=== PATIENT | male | born 1990 | race Two or more races ===

== ENCOUNTER 2016-08-29 09:51 | Emergency (ER) | payer SELFPAY ==
[2016-08-29 10:00] VITALS: BP 117/57; PULSE 80; TEMP 99.4; BMI 22.6
[2016-08-29] MEDS ORDERED: RABIES VACCINE (PCEC)/PF 2.5 UNIT/VIAL IM ONE (10:15)
--- NOTE | 2016-08-29 10:26 | PDOC ---
History of Present Illness - General Chief Complaint: Revisit,Rabies Injection Stated Complaint: FOLLOW UP/ RABIES SHOT Time Seen by Provider: 08/29/16 10:12 History Source: Patient Exam Limitations: No Limitations - History of Present Illness Initial Comments: 08/29/16 10:17 here for second Rabies Vacciine . Was attacked by unknown dog, thinks was pimple 3 days ago. Was bitten in the right lower leg both anterior and posterior wound sites. Patient denies fever, states is quite painful still, has used Percocet for pain relief and taking Augmentin as directed. Denies purulent drainage, swelling, Severity: moderate Associated Symptoms: reports: denies symptoms Past History - Travel Traveled outside of the country in the last 30 days: No Close contact w/someone who was outside of country & ill: No - Past Medical History Allergies/Adverse Reactions: Allergies Allergy/AdvReac Type Severity Reaction Status Date / Time divalproex sodium AdvReac Nausea Verified 08/29/16 10:00 [From [facility]] Home Medications: Ambulatory Orders No Home Medications 0 dose .ROUTE UTDICT 05/06/13 Amoxicillin/Potassium Clav [Augmentin 875-125 Tablet] 1 each PO BID #14 tablet 08/26/16 Oxycodone HCl/Acetaminophen [Percocet 5/325 -] 1 tab PO Q4H #20 tablet MDD 6 11/05 - Surgical History Abdominal Surgery: Yes (ABD CYST REMOVED) - Psycho/Social/Smoking Cessation Hx Anxiety: No Suicidal Ideation: No Smoking History: Never smoked Number of Cigarettes Smoked Daily: 2 'Breaking Loose' booklet given: 05/06/13 Hx Alcohol Use: No Drug/Substance Use Hx: No Substance Use Type: None Review of Systems - Review of Systems Able to Perform ROS?: Yes Is the patient limited Gabonese proficient: Yes Constitutional: Yes: Symptoms Reported, See HPI. No: Fever HEENTM: No: Symptoms Reported Respiratory: No: Symptoms reported Musculoskeletal: Yes: Symptoms Reported, See HPI, Joint Swelling, Muscle Pain Psychiatric: No: Anxiety All Other Systems: Reviewed and Negative *Physical Exam - Vital Signs Last Vital Signs Temp Pulse Resp BP Pulse Ox 99.4 F 80 20 117/57 96 08/29/16 09:57 08/29/16 09:57 08/29/16 09:57 08/29/16 09:57 08/29/16 09:57 - Physical Exam General Appearance: Yes: Appropriately Dressed HEENT: positive: JUMA, Normal ENT Inspection, Normal Voice, TMs Normal, Pharynx Normal Neck: positive: Supple. negative: Lymphadenopathy (R), Lymphadenopathy (L) Extremity: positive: Normal Capillary Refill, Normal Inspection, Normal Range of Motion, Tender Integumentary: positive: Dry, Bruising, Other (sutures intact to multiple sites to right lower extremity illness, swelling, streaking or purulent drainage noted. Bruising extends into foot. And at Achilles intact.). 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, Fully Oriented, Alert, Normal Mood/ Affect, Normal Response, Motor Strength 08/24 Medical Decision Making - Medical Decision Making 08/29/16 10:31 Rabies vaccination provided, understands to return on the for third vaccine *DC/Admit/Observation/Transfer Diagnosis at time of Disposition: Encounter for repeat administration of rabies vaccination - Discharge Dispostion Disposition: HOME Condition at time of disposition: Stable Admit: No - Patient Instructions Printed Discharge Instructions: DI for Rabies Vaccine Additional Instructions: return 09/02 for 3rd vaccine - Post Discharge Activity Work/School Note: Back to Work
== END 2016-08-29 10:35 | disposition home or self-care (01) ==
LOC: JERFT 09:51
PROC: 3E0234Z Introduction of Serum, Toxoid and Vaccine into Muscle, Percutaneous Approach (ICD-10-PCS; principal; 2016-08-29)
DX: Z20.3 Contact with and (suspected) exposure to rabies (principal)
CPT/HCPCS: 90675; 99281-25

== ENCOUNTER 2016-09-02 10:17 | Emergency (ER) | payer SELFPAY ==
[2016-09-02 10:35] VITALS: BP 133/74; PULSE 60; TEMP 98.6; BMI 22.9
--- NOTE | 2016-09-02 10:40 | PDOC ---
History of Present Illness - General Chief Complaint: Revisit,Rabies Injection Stated Complaint: FOLLOW UP VISIT Time Seen by Provider: 09/02/16 10:32 History Source: Patient Exam Limitations: No Limitations - History of Present Illness Initial Comments: 25 y/o afebrile male here for third Rabies Vacciine . Was attacked by unknown dog, thinks was pimple 3 days ago. Was bitten in the right lower leg both anterior and posterior wound sites. Patient denies fever, states is quite painful still, has used Percocet for pain relief and taking Augmentin as directed. Denies purulent drainage, swelling, Past History - Past Medical History Allergies/Adverse Reactions: Allergies Allergy/AdvReac Type Severity Reaction Status Date / Time divalproex sodium AdvReac Nausea Verified 09/02/16 10:30 [From Depakote] Home Medications: Ambulatory Orders NK [No Known Home Medication] 08/29/16 Thyroid Disease: No - Surgical History Abdominal Surgery: Yes (ABD CYST REMOVED) - Psycho/Social/Smoking Cessation Hx Anxiety: Yes Suicidal Ideation: No Smoking History: Never smoked Have you smoked in the past 12 months: No Number of Cigarettes Smoked Daily: 2 Information on smoking cessation initiated: No 'Breaking Loose' booklet given: 05/06/13 Hx Alcohol Use: No Drug/Substance Use Hx: No Substance Use Type: None *Physical Exam - Vital Signs Last Vital Signs Temp Pulse Resp BP Pulse Ox 98.6 F 60 18 133/74 100 09/02/16 10:28 09/02/16 10:28 09/02/16 10:28 09/02/16 10:28 09/02/16 10:28 Medical Decision Making - Medical Decision Making A/P: 25 y/o afebrile male here for 3rd rabies shot after being bitten by unknown dog on 08/26/16. Will give Rabies Vaccine IM and discharge to home. The patient is aware that he has to return to the ER on 09/09/16 for final rabies vaccine. *DC/Admit/Observation/Transfer Diagnosis at time of Disposition: Encounter for repeat administration of rabies vaccination - Discharge Dispostion Disposition: HOME Condition at time of disposition: Good - Patient Instructions Printed Discharge Instructions: DI for Rabies Vaccine Additional Instructions: Discharge Instructions: -Please return to the ER on 09/09/16 for your 4th rabies shot.
[2016-09-02] MEDS ORDERED: RABIES VACCINE (PCEC)/PF 2.5 UNIT/VIAL IM ONE (10:48)
== END 2016-09-02 10:58 | disposition home or self-care (01) ==
LOC: JERFT 10:17
PROC: 3E0234Z Introduction of Serum, Toxoid and Vaccine into Muscle, Percutaneous Approach (ICD-10-PCS; principal; 2016-09-02)
DX: Z20.3 Contact with and (suspected) exposure to rabies (principal)
CPT/HCPCS: 90675; 99281-25

== ENCOUNTER 2016-09-04 16:00 | Emergency (ER) | payer SELFPAY ==
[2016-09-04 16:12] VITALS: BP 125/76; PULSE 72; TEMP 98.4; BMI 22.6
[2016-09-04] MEDS ORDERED: BACITRACIN 15 GM TUBE TOPICAL OINTMENT ONE (17:14)
--- NOTE | 2016-09-04 17:34 | PDOC ---
Suture Removal/Wound Check HPI - History of Present Illness Chief Complaint: Suture/Staple Removal(Here) Stated Complaint: SUTURE REMOVAL Time Seen by Provider: 09/04/16 16:34 History Source: Yes: Patient Exam Limitations: Yes: No Limitations Treated at: [facility] ED Date of Last ED visit: 08/25/16 - Previous ED Treatment Type of procedure performed on last visit: Yes: Laceration Repair Tetanus Immunization: Yes: Given at last ED visit Antibiotics Prescribed: Yes (augmentin, completed ) - Onset of Previous Treatment Date of Occurence: 08/25/16 Past History - Travel Traveled outside of the country in the last 30 days: No Close contact w/someone who was outside of country & ill: No - Past Medical History Allergies/Adverse Reactions: Allergies divalproex sodium [From Depakote] Adverse Reaction (Verified 09/04/16 16:12) Nausea Home Medications: Ambulatory Orders NK [No Known Home Medication] 08/29/16 - Social History Smoking Status: Never smoked Number of Ciarettes Per Day: 2 Suture Removal/Wound Check PE - Physical Exam Laceration/Wound Check Symptoms: reports: None. denies: Chills, Numbness, Weakness Current Severity Level: Mild Maximum Severity Level: Mild Location of Laceration/Wound: right: Ankle Pain Radiation: None *Review of Systems - Review of Systems Able to Perform ROS?: Yes Constitutional: No: Chills, Fever HEENTM: No: Nose Pain, Nose Congestion, Throat Pain Respiratory: No: Cough, Orthopnea, Stridor Cardiac (ROS): No: Chest Pain, Irregular Heart Rate ABD/GI: No: Constipated, Other : No: Pain Integumentary: Yes: Other (suture removal from right ankle) Neurological: No: Headache, Numbness, Paresthesia Psychiatric: No: Frequent Crying, Change in Appetite Endocrine: No: Intolerance to Heat Medical Decision Making - Medical Decision Making 09/04/16 17:29 25 year old with dog bite 10 days ago presents for suture removal sutures removed intact encouraged to keep wound clean and dry return 09/09/16 for rabies vaccine *DC/Admit/Observation/Transfer Diagnosis at time of Disposition: Visit for suture removal - Discharge Dispostion Disposition: HOME Condition at time of disposition: Good Admit: No - Patient Instructions Printed Discharge Instructions: DI for Suture Removal Additional Instructions: Keep wound clean and dry. Please return 09/09/16 for vaccine vaccine - Post Discharge Activity Work/School Note: Back to Work
== END 2016-09-04 17:39 | disposition home or self-care (01) ==
LOC: JERFT 16:00
DX: Z48.02 Encounter for removal of sutures (principal)
CPT/HCPCS: 99281-25

== ENCOUNTER 2016-09-09 08:37 | Emergency (ER) | payer SELFPAY ==
[2016-09-09 08:41] VITALS: BP 122/63; PULSE 81; TEMP 98.8; BMI 22.6
--- NOTE | 2016-09-09 09:30 | PDOC ---
History of Present Illness - General Chief Complaint: Revisit,Rabies Injection Stated Complaint: REVISIT/ RABIE SHOT Time Seen by Provider: 09/09/16 09:14 History Source: Patient Exam Limitations: No Limitations - History of Present Illness Initial Comments: 09/09/16 10:10 Chief complaint: Rabies shot Patient is a healthy 25-year-old male who was bitten by a pit bull about 2 weeks ago, had suturing done, took Augmentin, is here to have the rest of the sutures out and to get a rabies shot. He states that the wound is still a little red. He had some numbness to the foot but that is resolved. Otherwise feels well. Patient finished a course of Augmentin. GENERAL/CONSTITUTIONAL: No fever, weakness. dizziness HEAD, EYES, EARS, NOSE AND THROAT: No change in vision. No ear pain or discharge. No sore throat. CARDIOVASCULAR: No chest pain RESPIRATORY: No shortness of breath or cough GASTROINTESTINAL: No pain, nausea, vomiting, diarrhea or constipation GENITOURINARY: No dysuria MUSCULOSKELETAL: No neck or back pain SKIN: No rash, + sutures, redness NEUROLOGIC: No headache, vertigo, loss of consciousness, or loss of sensation. GENERAL: The patient is awake, alert, and fully oriented, in no acute distress. HEAD: Normal with no signs of trauma. EYES: Pupils equal, round and reactive to light, sclera anicteric, conjunctiva clear. ENT: pharynx: no erythema, no exudate, uvula midline NECK: supple CHEST: clear, nontender, rr ABD: soft, nontender EXTREMITIES: Right lower leg with 2 wounds, wound to the lateral aspect scabbing , no signs of infection, wound to the medial aspect with [address], large scabbing area, and minimal redness around the area, no indication or findings of abscess, no streaking and minimal tenderness. rest of extremities, Normal range of motion, no edema. NEUROLOGICAL: Normal speech, normal gait. SKIN: Warm, Dry 09/09/16 10:15 Past History - Past Medical History Allergies/Adverse Reactions: Allergies Allergy/AdvReac Type Severity Reaction Status Date / Time divalproex sodium AdvReac Nausea Verified 09/09/16 08:41 [From Depakote] Home Medications: Ambulatory Orders Amox-Tr/K Cl [Augmentin - 875Mg Tablet] 1 tab PO BID #14 tablet 09/09/16 Sulfamethoxazole/Trimethoprim [Bactrim Ds -] 1 tab PO DAILY #30 tablet 09/09/16 Thyroid Disease: No - Surgical History Abdominal Surgery: Yes (ABD CYST REMOVED) - Psycho/Social/Smoking Cessation Hx Anxiety: Yes Suicidal Ideation: No Smoking History: Current every day smoker Have you smoked in the past 12 months: No Number of Cigarettes Smoked Daily: 2 Information on smoking cessation initiated: No 'Breaking Loose' booklet given: 05/06/13 Hx Alcohol Use: Yes (SOCIAL) Drug/Substance Use Hx: No Substance Use Type: None *Physical Exam - Vital Signs Last Vital Signs Temp Pulse Resp BP Pulse Ox 98.8 F 81 20 122/63 98 09/09/16 08:38 09/09/16 08:38 09/09/16 08:38 09/09/16 08:38 09/09/16 08:38 Procedures - Additional Procedures Progress: 09/09/16 10:28 suture removed without any issues Medical Decision Making - Medical Decision Making 09/09/16 10:16 Patient who came for last rabies shot from a dog bite, who has [address] stated there was some redness around the area. Patient got last rabies shot, the sutures were removed, there is no signs of abscess or gross cellulitis that spreading. Patient had taken Augmentin. He states it hasn't gotten worse but did not go away. We'll give patient another course of Augmentin , will add Bactrim for better coverage and patient was given instructions for return Discussed issues, findings, results, applicable medications and treatments and follow-up. All these were understood and all questions were answered *DC/Admit/Observation/Transfer Diagnosis at time of Disposition: Encounter for repeat administration of rabies vaccination - Discharge Dispostion Admit: No - Prescriptions Prescriptions: Amox-Tr/K Cl [Augmentin - 875Mg Tablet] 1 tab PO BID #14 tablet Sulfamethoxazole/Trimethoprim [Bactrim Ds -] 1 tab PO DAILY #30 tablet - Patient Instructions Printed Discharge Instructions: DI for Rabies Vaccine Additional Instructions: Clean with soap and water 2-3 times daily, apply bacitracin Have her reevaluated if redness, pus, fever or getting worse Followup with your doctor Take the Augmentin and the Bactrim twice a day both for 7 days. If this gets worse return to the hospital, as she will probably need to be admitted IV antibiotics
== END 2016-09-09 09:45 | disposition home or self-care (01) ==
LOC: JERFT 08:37
PROC: 3E0234Z Introduction of Serum, Toxoid and Vaccine into Muscle, Percutaneous Approach (ICD-10-PCS; principal; 2016-09-09)
DX: Z20.3 Contact with and (suspected) exposure to rabies (principal)
CPT/HCPCS: 99281-25

== ENCOUNTER 2016-09-25 16:28 | Emergency (ER) | payer SELFPAY ==
--- NOTE | 2016-09-25 16:43 | PDOC ---
Rapid Medical Evaluation Time Seen by Provider: 09/25/16 16:40 Medical Evaluation: Allergies Allergy/AdvReac Type Severity Reaction Status Date / Time divalproex sodium AdvReac Nausea Verified 09/09/16 08:41 [From [facility]] I have performed a brief in-person evaluation of this patient. The patient presents with a chief complaint of: dog bite to right posterior leg 5/6. had stitches and were removed. Was placed on abx (bactrim and augmentin) which he finished. worsened pain, redness and opening to affected area. Pertinent physical exam findings: poorly healing wound of right posterior distal leg with no streaking. I have ordered the following: none The patient will proceed to the ED for further evaluation.
[2016-09-25 16:44] VITALS: BP 125/85; PULSE 65; TEMP 99.1; BMI 21.5
--- NOTE | 2016-09-25 17:46 | PDOC ---
History of Present Illness - General History Source: Patient Exam Limitations: No Limitations - History of Present Illness Initial Comments: 09/25/16 17:47 The patient is a 25 year old male, with no significant past medical history , who presents today with an infected dog bite wound from 08/25/16 on the posterior right leg. The patient was sutured, given a rabies shot, and discharged on Augmentin. On 09/09/16, the patient had the sutures removed. The patient states that the wound began to open up as soon as the sutures were taken out. Since then, the wound started to swell and opened up significantly 2 days ago. He is also concerned that his achilles feels numb since the accident. The patient notes that he wears tall heavy work boots, but wraps the wound with antibacterial pads and gauze. Denies fever, chills, nausea, vomiting. Allergies: divalproex sodium <Rosangela Novoa - Last Filed: 09/25/16 17:47> - General History Source: Patient Exam Limitations: No Limitations <Lesa Rutherford - Last Filed: 09/27/16 11:27> - General Chief Complaint: Wound Infection Stated Complaint: INFECTION Time Seen by Provider: 09/25/16 16:40 Past History <Rosangela Novoa - Last Filed: 09/25/16 17:47> - Past Medical History Thyroid Disease: No - Surgical History Abdominal Surgery: Yes (ABD CYST REMOVED) - Psycho/Social/Smoking Cessation Hx Anxiety: Yes Suicidal Ideation: No Smoking History: Never smoked Have you smoked in the past 12 months: No Number of Cigarettes Smoked Daily: 2 Information on smoking cessation initiated: No 'Breaking Loose' booklet given: 05/06/13 Hx Alcohol Use: Yes (SOCIAL) Drug/Substance Use Hx: No Substance Use Type: None <Lesa Rutherford - Last Filed: 09/27/16 11:27> - Past Medical History Allergies/Adverse Reactions: Allergies Allergy/AdvReac Type Severity Reaction Status Date / Time divalproex sodium AdvReac Nausea Verified 09/25/16 16:44 [From Depakote] Home Medications: Ambulatory Orders Sulfamethoxazole/Trimethoprim [Bactrim Ds -] 1 tab PO DAILY #30 tablet 09/09/16 Doxycycline Hyclate [Vibramycin -] 100 mg PO BID #14 cap 09/25/16 Ibuprofen [Motrin] 600 mg PO TID #30 tablet 09/25/16 Oxycodone HCl/Acetaminophen [Percocet 5-325 mg Tablet] 1 - 2 tab PO Q6H #20 tablet MDD 4 09/25/16 Review of Systems - Review of Systems Able to Perform ROS?: Yes Comments:: 09/25/16 17:47 GENERAL/CONSTITUTIONAL: No: fever, chills, weakness, loss of appetite. HEAD, EYES, EARS, NOSE AND THROAT: No: change in vision, ear pain, discharge, sore throat, throat swelling. CARDIOVASCULAR: No: chest pain, lightheadedness, palpitations, syncope RESPIRATORY: No: cough, shortness of breath, wheezing, hemoptysis, stridor. GASTROINTESTINAL: No: nausea, vomiting, abdominal cramping, diarrhea, rectal bleeding, constipation. GENITOURINARY: No: dysuria, hematuria, frequency, urgency, flank pain. MUSCULOSKELETAL: No: back pain, neck pain, joint pain, muscle swelling or pain SKIN: Yes: + wound on the posterior right leg. No: lesions, pallor, rash or easy bruising. NEUROLOGIC: No: headache, vertigo, paresthesias, weakness ENDOCRINE: No: unexplained weight gain or loss HEMATOLOGIC/LYMPHATIC: No: anemia, easy bleeding, swelling nodes <Rosangela Novoa - Last Filed: 09/25/16 17:47> *Physical Exam - Vital Signs Last Vital Signs Temp Pulse Resp BP Pulse Ox 99.1 F 65 18 125/85 98 09/25/16 16:40 09/25/16 16:40 09/25/16 16:40 09/25/16 16:40 09/25/16 16:40 - Physical Exam Comments: 09/25/16 17:47 GENERAL: The patient is in no acute distress. HEAD: Normal with no signs of trauma. EYES: PERRLA, EOMI, sclera anicteric, conjunctiva clear. ENT: Ears normal, nares patent, oropharynx clear without exudates. Moist mucous membranes. NECK: Normal range of motion, supple without lymphadenopathy, JVD, or masses. LUNGS: Breath sounds equal, clear to auscultation bilaterally. No wheezes, and no crackles. HEART:Regular rate and rhythm, normal S1 and S2 without murmur, rub or gallop. ABDOMEN: Soft, nontender, normoactive bowel sounds. No guarding, no rebound. EXTREMITIES: Normal range of motion, no edema. No clubbing or cyanosis. No erythema, or tenderness. NEUROLOGICAL: Cranial nerves II through XII grossly intact. Normal speech. No focal neurological deficits. MUSCULOSKELETAL: Back nontender to palpation, no CVA tenderness SKIN: +Wound dehisced. Surrounding erythema and swelling. No tenderness to palpation. No calf swelling. <Rosangela Novoa - Last Filed: 09/25/16 17:47> - Vital Signs Last Vital Signs Temp Pulse Resp BP Pulse Ox 99.1 F 65 18 125/85 98 09/25/16 16:40 09/25/16 16:40 09/25/16 16:40 09/25/16 16:40 09/25/16 16:40 <Lesa Rutherford - Last Filed: 09/27/16 11:27> ED Treatment Course - LABORATORY CBC & Chemistry Diagram: 09/25/16 17:33 09/25/16 17:33 - RADIOLOGY Radiology Studies Ordered: Category Date Time Status LOWER EXTREMITY CT W/WO CONTR [CT] Stat CT Scan 09/25/16 17:17 Ordered <Lesa Rutherford - Last Filed: 09/27/16 11:27> Medical Decision Making - Medical Decision Making 09/25/16 17:46 A portion of this note was documented by scribe services under my direction. I have reviewed the details of the note, within reason, and agree with the documentation with the following case summary and management plan written by me. Nursing documentation reviewed and incorporated into medical decision making This is a 25-year-old otherwise healthy male who presents emergency department due to changes of his wound. Briefly, he was seen in the ER s/p dog bite with large defect Wound re approximated Pt started on antibiotics Pt was also started on Rabies ppx Sutures were removed Three left in because there appeared to be mild wound dehiscence Ultimately the remainining sutures were removed Pt noted two days ago that his wound opened up more This actually made him feel better to have the wound open up He felt that it relieved pressure After the wound opened up more, his heel which was previously numb, felt much better He still has numbness of the achilles No fevers or chills No drainage Wound location is swollen surrounging hyperpigmentation 09/25/16 18:45 Laboratory Tests 09/25/16 09/25/16 17:33 17:33 WBC 8.2 Hgb 13.3 Hct 40.2 Plt Count 217 Sodium 140 Potassium 4.2 Chloride 105 Carbon Dioxide 25 Anion Gap 10 BUN 13 Creatinine 0.9 Random Glucose [address] to evaluate for deep space infection Will sign out to Dr Valentin If abscess --> admit If no abscess -- > ? plastic surgery follow up?? <Lesa Rutherford - Last Filed: 09/27/16 11:27> *DC/Admit/Observation/Transfer - Attestations Scribe Attestion: 09/25/16 17:48 Documentation prepared by [employer], acting as anesthesiology medical doctor for Lesa Rutherford MD. <Rosangela Novoa - Last Filed: 09/25/16 17:47> <Lesa Rutherford - Last Filed: 09/27/16 11:27> Diagnosis at time of Disposition: Wound healing, delayed - Discharge Dispostion Disposition: HOME - Prescriptions Prescriptions: Ibuprofen [Motrin] 600 mg PO TID #30 tablet Oxycodone HCl/Acetaminophen [Percocet 5-325 mg Tablet] 1 - 2 tab PO Q6H #20 tablet MDD 4 Doxycycline Hyclate [Vibramycin -] 100 mg PO BID #14 cap - Patient Instructions Printed Discharge Instructions: DI for Wound Infection Additional Instructions: Continue keeping wound clean and dry. WASh with soap and water. Return if any problems. - Post Discharge Activity Work/School Note: Back to Work
[2016-09-25 17:55] LABS: BASOPHIL 0.5 % (0-2.0); EOSINOPHIL 0.7 % (0-4.5); MCH 29.3 pg (25.7-33.7); MEAN CELL VOLUME 88.9 fl (80-96); NEUTROPHILS 62.1 % (42.8-82.8); PLATELET COUNT 217 K/MM3 (134-434); RDW 13.8 % (11.9-15.9); WHITE BLOOD COUNT 8.2 K/mm3 (4.0-10.0)
[2016-09-25 18:14] LABS: ALBUMIN 4.2 g/dl (3.4-5.0); ALK PHOS 78 U/L (45-117); ANION GAP 10 (8-16); BILIRUBIN,TOTAL 0.4 mg/dL (0.2-1.0); CO2 25 mmol/L (21-32); COCKROFT - GAULT 120.74; CREATININE 0.9 mg/dL (0.7-1.3); GLUCOSE,RANDOM 87 mg/dL (74-106); SGOT/AST 15 U/L (15-37); SGPT/ALT 22 U/L (12-78); TOT PROT 7.3 g/dl (6.4-8.2)
[2016-09-25] MEDS ORDERED: DOXYCYCLINE HYCLATE 100 MG CAPSULE PO ONE ×2 (21:24→21:41)
[2016-09-25] MEDS ORDERED: OXYCODONE/APAP 5/325MG COMBO TABLET PO ONE (21:26)
--- NOTE | 2016-09-25 21:28 | PDOC ---
*Physical Exam - Vital Signs Last Vital Signs Temp Pulse Resp BP Pulse Ox 99.1 F 65 18 125/85 98 09/25/16 16:40 09/25/16 16:40 09/25/16 16:40 09/25/16 16:40 09/25/16 16:40 ED Treatment Course - LABORATORY CBC & Chemistry Diagram: 09/25/16 17:33 09/25/16 17:33 - ADDITIONAL ORDERS Additional order review: Laboratory Results 09/25/16 17:33 Sodium 140 Potassium 4.2 Chloride 105 Carbon Dioxide 25 Anion Gap 10 BUN 13 Creatinine 0.9 Creat Clearance w eGFR > 60 Random Glucose 87 Calcium 9.0 Total Bilirubin 0.4 AST 15 ALT 22 Alkaline Phosphatase 78 Total Protein 7.3 Albumin 4.2 09/25/16 17:33 RBC 4.53 MCV 88.9 MCHC 33.0 RDW 13.8 MPV 9.0 Neutrophils % 62.1 Lymphocytes % 27.4 Monocytes % 9.3 Eosinophils % 0.7 Basophils % 0.5 *DC/Admit/Observation/Transfer Diagnosis at time of Disposition: Delayed wound healing - Discharge Dispostion Disposition: HOME Condition at time of disposition: Stable Admit: No - Patient Instructions Printed Discharge Instructions: DI for Wound Infection Additional Instructions: Continue keeping wound clean and dry. WASh with soap and water. Return if any problems. - Post Discharge Activity Work/School Note: Back to Work
[2016-09-25] MEDS ORDERED: OXYCODONE/APAP 5/325MG COMBO TABLET ONE (21:40)
== END 2016-09-25 21:46 | disposition home or self-care (01) ==
LOC: JER 16:28
DX: T81.33XA Disruption of traumatic injury wound repair, initial encounter (principal); Y83.8 Other surgical procedures as the cause of abnormal reaction of the patient, or of later complication, without mention of misadventure at the time of the procedure
CPT/HCPCS: 36415; 73701-TC-RT; 80053; 85025; 87040; 99281-25

== ENCOUNTER 2018-03-07 13:03 | Emergency (ER) | payer OTHER, BC ==
[2018-03-07 13:39] VITALS: BP 114/69; PULSE 75; TEMP 98.5; BMI 24.4
--- NOTE | 2018-03-07 14:06 | PDOC ---
History of Present Illness - General Chief Complaint: Injury Stated Complaint: INJURY Time Seen by Provider: 03/07/18 13:59 History Source: Patient Exam Limitations: No Limitations - History of Present Illness Initial Comments: 03/07/18 14:33 Patient sustained crush injury to left index finger today while at work. Caught left index finger between 2 heavy pieces of machinery. States extend from PIP to distal aspect of finger, did not bleed. Occurred: reports: yesterday Severity: reports: mild, moderate Pain Location: reports: upper extremity (left index) Method of Injury: Yes: direct blow Modifying Factors: improves with: None, cold therapy Associated Symptoms (Fall): denies symptoms Past History - Travel Traveled outside of the country in the last 30 days: No Close contact w/someone who was outside of country & ill: No - Past Medical History Allergies/Adverse Reactions: Allergies Allergy/AdvReac Type Severity Reaction Status Date / Time divalproex sodium AdvReac Nausea Verified 03/07/18 13:34 [From Depakote] Home Medications: Ambulatory Orders Oxycodone HCl/Acetaminophen [Percocet 5-325 mg Tablet -] 1 - 2 tab PO Q4H PRN # 10 tablet MDD 4 03/07/18 COPD: No Thyroid Disease: No Other medical history: DENIES. - Surgical History Abdominal Surgery: Yes (ABD CYST REMOVED) - Suicide/Smoking/Psychosocial Hx Smoking History: Current some day smoker Have you smoked in the past 12 months: Yes Number of Cigarettes Smoked Daily: 2 Information on smoking cessation initiated: No 'Breaking Loose' booklet given: 05/06/13 Hx Alcohol Use: Yes (SOCIAL) Drug/Substance Use Hx: No Substance Use Type: None Review of Systems - Review of Systems Able to Perform ROS?: Yes Is the patient limited Mauritian proficient: Yes Constitutional: Yes: Symptoms Reported, See HPI, Malaise HEENTM: Yes: Symptoms Reported, See HPI Musculoskeletal: Yes: Symptoms Reported, See HPI, Joint Pain, Joint Swelling Integumentary: Yes: Symptoms Reported, Bruising All Other Systems: Reviewed and Negative *Physical Exam - Vital Signs Last Vital Signs Temp Pulse Resp BP Pulse Ox 98.5 F 75 19 114/69 100 03/07/18 13:34 03/07/18 13:34 03/07/18 13:34 03/07/18 13:34 03/07/18 13:34 - Physical Exam General Appearance: Yes: Nourished, Appropriately Dressed, Apparent Distress, Mild Distress HEENT: positive: JUMA, Normal ENT Inspection, TMs Normal, Pharynx Normal Neck: negative: Tender Musculoskeletal: positive: Decreased Range of Motion. negative: Normal Inspection Extremity: positive: Normal Capillary Refill, Tender, Swelling. negative: Normal Inspection, Normal Range of Motion (limited to slight flexion and extension with tenderness at PIP and DIP. Has no subungual hematoma) Integumentary: positive: Swelling, Ecchymosis, Bruising Neurologic: positive: team assembler II-XII NML intact, Fully Oriented, Alert, Normal Mood/ Affect, Normal Response, Motor Strength 5/5 Procedures - Splinting Splint Location: Left: Finger (index ) ED Treatment Course - RADIOLOGY Radiology Studies Ordered: Category Date Time Status FINGER(S) LEFT [RAD] Stat Radiology 03/07/18 13:59 Ordered Progress Note - Progress Note Progress Note: X-ray negative for fractures or dislocations. No subungual hematoma. Finger splint placed the patient given #10 Percocet tablets *DC/Admit/Observation/Transfer Diagnosis at time of Disposition: Sprain of finger of left hand Qualifiers: Encounter type: initial encounter Finger: index finger Sprain of finger site: unspecified site Qualified Code(s): S63.611A - Unspecified sprain of left index finger, initial encounter - Discharge Dispostion Disposition: HOME Condition at time of disposition: Stable Decision to Admit order: No - Prescriptions Prescriptions: Oxycodone HCl/Acetaminophen [Percocet 5-325 mg Tablet -] 1 - 2 tab PO Q4H PRN # 10 tablet MDD 4 PRN Reason: Pain - Referrals Referrals: Sanchez Vargas MD [Staff Physician] - - Patient Instructions Printed Discharge Instructions: DI for Finger Sprain Additional Instructions: Rest, ice to area on and off for 15 minutes 4-6 times a day Avoid heavy lifting or exercise until pain and swelling is resolved or until further directed Keep area highly elevated to reduce swelling Use splints/Sacha wrap as directed Followup with orthopedist in one to 2 days if not improving, if significantly improved may wait one week for followup with orthopedist May use ibuprofen 2-200 mg tablets every 6 hours as needed for pain - Post Discharge Activity Forms/Work/School Notes: Back to Work
[2018-03-07] MEDS ORDERED: IBUPROFEN 600 MG TABLET (FP) PO ONE ×2 (14:50→14:54)
== END 2018-03-07 14:59 | disposition home or self-care (01) ==
LOC: JERFT 13:03
DX: S63.611A Unspecified sprain of left index finger, initial encounter (principal); W23.0XXA Caught, crushed, jammed, or pinched between moving objects, initial encounter; Y93.89 Activity, other specified; Y92.89 Other specified places as the place of occurrence of the external cause; Y99.0 Civilian activity done for income or pay; F17.210 Nicotine dependence, cigarettes, uncomplicated
CPT/HCPCS: 73140-TC-LT-FY; 99281-25

== ENCOUNTER 2019-05-04 10:30 | Emergency (ER) | payer BC ==
[2019-05-04] MEDS ORDERED: SODIUM CHLORIDE 1,000 ML IV STA (10:39)
[2019-05-04] MEDS ORDERED: METOCLOPRAMIDE HCL INJECTION 10 MG/2 ML VIAL IVPUSH ONE (10:39)
[2019-05-04 10:52] VITALS: BP 140/88; PULSE 90; TEMP 98.5; BMI 28.5
--- NOTE | 2019-05-04 10:54 | PDOC ---
History of Present Illness - General Chief Complaint: Diarrhea Stated Complaint: DIARRHEA & ABD PAIN Time Seen by Provider: 05/04/19 10:39 - History of Present Illness Initial Comments: Mr. Saenz is a 28 y/o male with hx of abdominal cyst rupture and subsequent surgery 15 years ago, presenting with abdominal pain, nausea, vomiting with intermittent blood tinge, diarrhea with intermittent blood. Reports that the abdominal pain started 2 weeks ago but worsened today. Describes the pain as generalized but worse in the epigastric and RLQ areas. Reports that he has been vomiting 2-6 times per day since March with intermittent blood in the vomit. Reports that he has had diarrhea for a long time, and started having increasing blood in the diarrhea over the past couple of weeks. Reports chills without fever. Reports a bulge in the periumbilical area that enlarges and reduces on its own when he eats. PMH: none SurgHx: abdominal cyst surgery FamHx: unknown adopted Meds: none SocHx: reports drinking six pack of beer per day Past History - Past Medical History Allergies/Adverse Reactions: Allergies Allergy/AdvReac Type Severity Reaction Status Date / Time divalproex sodium AdvReac Nausea Verified 03/07/18 13:34 [From Depakote] Home Medications: Ambulatory Orders Ergocalciferol (Vitamin D2) [Vitamin D2] 50,000 unit PO WEEKLY 05/04/19 Metoclopramide HCl [Reglan] 10 mg PO TID 3 Days #9 tablet 05/04/19 COPD: No Thyroid Disease: No - Surgical History Abdominal Surgery: Yes (ABD CYST REMOVED) - Psycho Social/Smoking Cessation Hx Smoking History: Never smoked Have you smoked in the past 12 months: Yes Number of Cigarettes Smoked Daily: 2 'Breaking Loose' booklet given: 05/06/13 Hx Alcohol Use: Yes Drug/Substance Use Hx: No Substance Use Type: None Review of Systems - Review of Systems Comments:: GENERAL/CONSTITUTIONAL: No fever. Reports chills. No weakness._ HEAD, EYES, EARS, NOSE AND THROAT: No change in vision. No change in hearing. No sore throat._ CARDIOVASCULAR: No chest pain or shortness of breath_ RESPIRATORY: Denies cough. GASTROINTESTINAL: Reports abdominal pain, nausea, blood tinged vomiting, diarrhea. GENITOURINARY: No dysuria, frequency, or change in urination._ MUSCULOSKELETAL: No joint or muscle swelling or pain. No neck or back pain._ SKIN: No rash_ NEUROLOGIC: No headache, vertigo, loss of consciousness, or change in strength/ sensation._ ENDOCRINE: No increased thirst. No abnormal weight change_ HEMATOLOGIC/LYMPHATIC: No anemia, easy bleeding, or history of blood clots._ ALLERGIC/IMMUNOLOGIC: No hives or skin allergy._ *Physical Exam - Vital Signs Last Vital Signs Temp Pulse Resp BP Pulse Ox 98.5 F 90 20 140/88 100 05/04/19 10:38 05/04/19 10:38 05/04/19 10:38 05/04/19 10:38 05/04/19 10:38 - Physical Exam GENERAL: Awake, alert, and oriented to person/place/time, in no acute distress_ HEAD: No signs of trauma, normocephalic, atraumatic _ EYES: PERRLA, EOMI, sclera anicteric, conjunctiva clear_ ENT: Hearing grossly normal, nares patent, oropharynx clear without exudates. No uvular deviation. Moist mucosa_ NECK: Normal ROM, supple, no lymphadenopathy, JVD, or masses_ LUNGS: No distress, speaks in full sentences, clear to auscultation bilaterally _ HEART: Regular rate and rhythm, normal S1 and S2, no murmurs appreciated, peripheral pulses normal and equal bilaterally._ ABDOMEN: Soft, diffuse tenderness worse in epigastric/RLQ. Voluntary guarding, no rebound. No masses_ EXTREMITIES: Normal inspection, Normal range of motion, no edema. No clubbing or cyanosis_ NEUROLOGICAL: Cranial nerves II through XII grossly intact. Normal speech, normal gait, no focal sensorimotor deficits _ SKIN: Warm, Dry, normal turgor, no rashes or lesions noted_ ED Treatment Course - LABORATORY CBC & Chemistry Diagram: 05/04/19 11:10 05/04/19 11:10 Medical Decision Making - Medical Decision Making 05/04/19 11:19 28M hx of abdominal cyst rupture and surgery presenting with abdominal pain for the past 2 weeks, associated with blood tinged vomiting and diarrhea. DDx is very broad and includes hernia vs appy vs ulcer vs perforation vs crohn' s vs UC. -cbc, cmp, lipase, coags -cxr -ct abd w/ iv contrast -ua 05/04/19 11:57 Labs reviewed. Laboratory Last Values WBC 14.7 K/mm3 (4.0-10.8) H 05/04/19 11:10 RBC 5.77 M/mm3 (4.00-5.60) H 05/04/19 11:10 Hgb 17.5 GM/dl (11.7-16.9) H 05/04/19 11:10 Hct 51.7 % (35.4-49) H 05/04/19 11:10 MCV 89.5 fl (80-96) 05/04/19 11:10 MCH 30.4 pg (25.7-33.7) 05/04/19 11:10 MCHC 34.0 g/dl (32.0-35.9) 05/04/19 11:10 RDW 13.4 % (11.9-15.9) 05/04/19 11:10 Plt Count 285 K/MM3 (134-434) 05/04/19 11:10 MPV 9.1 fl (7.5-11.1) 05/04/19 11:10 Absolute Neuts (auto) 12.9 K/mm3 05/04/19 11:10 Neutrophils % 88.2 % (42.8-82.8) H 05/04/19 11:10 Lymphocytes % 4.5 % (8-40) L 05/04/19 11:10 Monocytes % 5.8 % (3.8-10.2) 05/04/19 11:10 Eosinophils % 0.3 % (0-4.5) 05/04/19 11:10 Basophils % 1.2 % (0-2.0) 05/04/19 11:10 PT with INR 12.0 SEC (10.2-13.0) 05/04/19 11:10 INR 1.07 (0.82-1.09) 05/04/19 11:10 PTT (Actin FS) 28.2 SECONDS (25.2-36.5) 05/04/19 11:10 Sodium 134 mmol/L (136-145) L 05/04/19 11:10 Potassium 4.1 mmol/L (3.5-5.1) 05/04/19 11:10 Chloride 99 mmol/L (98-107) 05/04/19 11:10 Carbon Dioxide 24 mmol/L (21-32) 05/04/19 11:10 Anion Gap 11 MMOL/L (8-16) 05/04/19 11:10 BUN 13.0 mg/dl (7-18) 05/04/19 11:10 Creatinine 0.9 mg/dl (0.55-1.3) 05/04/19 11:10 Est GFR (CKD-EPI)AfAm 134.24 05/04/19 11:10 Est GFR (CKD-EPI)NonAf 115.82 05/04/19 11:10 Random Glucose 125 mg/dl (74-106) H 05/04/19 11:10 Calcium 9.7 mg/dl (8.5-10) 05/04/19 11:10 Total Bilirubin 1.6 mg/dl (0.2-1) H 05/04/19 11:10 AST 66 U/L (15-37) H 05/04/19 11:10 ALT 117 U/L (13-61) H 05/04/19 11:10 Alkaline Phosphatase 74 U/L (45-117) 05/04/19 11:10 Total Protein 8.7 g/dl (6.4-8.2) H 05/04/19 11:10 Albumin 4.9 g/dl (3.4-5.0) 05/04/19 11:10 Urine Color Yellow 05/04/19 10:50 Urine Appearance Clear 05/04/19 10:50 Urine pH 5.5 (4.5-8) 05/04/19 10:50 Urine Protein Negative (NEGATIVE) 05/04/19 10:50 Urine Glucose (UA) Negative (NEGATIVE) 05/04/19 10:50 Urine Ketones Trace (NEGATIVE) 05/04/19 10:50 Urine Blood Negative (NEGATIVE) 05/04/19 10:50 Urine Nitrite Negative (NEGATIVE) 05/04/19 10:50 Urine Bilirubin Negative (NEGATIVE) 05/04/19 10:50 Urine Urobilinogen 0.2 (0.2-1.0) 05/04/19 10:50 Ur Leukocyte Esterase Negative (NEGATIVE) 05/04/19 10:50 05/04/19 12:06 CXR shows no acute intra thoracic pathology. No widened mediastinum. 05/04/19 12:29 Pt visited [place] 2 weeks ago. Add on hepatitis panel. 05/04/19 13:36 CT abd shows hepatomegaly and fatty infiltration of liver. No acute intra- abdominal pathology. Will treat with 750 ciprofloxacin x1 here. Plan to d/c home with GI f/u and reglan. Discharge - Discharge Information Problems reviewed: Yes Clinical Impression/Diagnosis: Travelers' diarrhea Abdominal pain Qualifiers: Abdominal location: generalized Qualified Code(s): R10.84 - Generalized abdominal pain Condition: Stable - Admission No - Additional Discharge Information Prescriptions: Metoclopramide HCl [Reglan] 10 mg PO TID 3 Days #9 tablet - Follow up/Referral Referrals: Thuan Merritt MD [Staff Physician] - - Patient Discharge Instructions Additional Instructions: Please take Reglan 10 mg three times per day for three days. Please make a follow up appointment with a GI specialist (Dr. Merritt's contact info has been provided here). If you experience any new, worsening, or concerning symptoms, including severe nausea, vomiting, abdominal pain, fever, or any other concerns, please return to the emergency department. - Post Discharge Activity Work/Back to School Note: Back to Work
--- NOTE | 2019-05-04 10:56 | PDOC ---
Attending Attestation - Resident Resident Name: Bong Shannon - ED Attending Attestation I have performed the following: I have examined & evaluated the patient, The case was reviewed & discussed with the resident, I agree w/resident's findings & plan - HPI HPI: 05/04/19 11:37 28 y/o male with hx of abdominal cyst rupture and subsequent surgery 15 years ago at age of 12, presenting with abdominal pain, nausea, vomiting, diarrhea with intermittent blood. Reports that the abdominal pain started 2 weeks ago but worsened today. Describes the pain as generalized, worse in the epigastrium and lower abdomen and exacerbated with eating and he feels a bulge pop out in his epigastrium. Reports that he has been vomiting 2-6 times per day since March with intermittent blood tinged emesis. Reports that he has had diarrhea for a "long time," and started having increasing blood in the diarrhea over the past couple of weeks. Reports chills without fever. Reports a bulge in the periumbilical area that enlarges and reduces on its own when he eats. of note, pt recently traveled to [place] 2 weeks ago for vacation, denies food triggers, ingestion of raw/seafood. ate mostly fish and chips/burgers there PMH: none SurgHx: abdominal cyst surgery FamHx: unknown adopted Meds: none SocHx: reports drinking six pack of beer per day 05/04/19 12:44 05/04/19 13:36 - Physicial Exam PE: 05/04/19 10:56 Agree with the resident's HPI and PE as documented in the electronic medical record. NAD, well appearing, EOMI, PERRL, nl conjunctiva, anicteric; neck supple. lungs clear, RRR, abdomen soft +epigastric TTP, no hernia, no kauffman's, no mcburney's point.. no rebound, guarding. Back nontender. no CVAT. external genitalia normal, no inguinal hernia palpated. MALIN x4, no focal neuro deficits. No peripheral edema. normal color for ethnicity, WWP. 05/04/19 12:45 - Medical Decision Making 05/04/19 10:56 Vital Signs Temp Pulse Resp BP Pulse Ox 98.5 F 90 20 140/88 100 05/04/19 10:38 05/04/19 10:38 05/04/19 10:38 05/04/19 10:38 05/04/19 10:38 DDx abdominal pain: Renal colic, biliary colic, metabolic/electrolyte derangements. GERD, PUD, esophageal spasm, pancreatitis, hepatitis, constipation , colitis, gastroenteritis, traveler's diarrhea, cholecystitis, UTI, pyelonephritis, ileus, SBO, medication side effect, hernia, appendicitis, diverticulitis, msk strain, mesenteric adenitis, psoas abscess. PUD/duodenal ulcer, anemia, electrolyte/metabolic derangements, ischemic colitis, hemorrhagic colitis, mesenteric ischemia. Vanessa bains tear, doubt Borhaaves. cxr is clear, no perforation or free air labs and lytes with mild hemoconcentration and leukocytosis of 14K. LFTs elevated, ALT>ALT. hepatitis vs fatty liver? coags normal CT a/p to eval for hepatic derangements/hernia or mass bedside pocus biliary neg for stones or wall thickening/fluid. hepatitis panel ordered, considering food bourne hepatitis given recent travel and now AP/diarrheal illness CT abdomen pelvis reveals hepatomegaly and fatty infiltration of the liver, fluid-filled colon with slight thickening, this is correlated with colitis and patient is diarrheal illness. Given recent travel history will consider traveler's diarrhea and offered antibiotics to shorten the course of his diarrhea. Also notable for thickened urinary bladder but patient's urinalysis is preliminarily negative will send and follow-up on urinary cultures. On Reassessment: The patient appears comfortable and states that pain is improved. Given medications reglan, morphine, IVF with clinical improvement. Tolerating oral intake. Vital signs reviewed and are normal. On repeat physical exam, the abdomen is soft and nontender, no suggestive findings for acute abdominal process at this time. no peritoneal findings. no hernia palpated, and no defect noted on CT imaging All diagnostics tests reviewed and discussed with the patient. pt given ciprofloxacin 750mg x1 for presumptive traveler's diarrhea. rx reglan to pharmacy, prn for n/v, staying hydrated and supportive care. The patient was able to tolerate oral intake. The patient was advised that even though there is no evidence of a surgical emergency at this time, sometimes this is not visible on CT or in the labs early in a disease course and that if there is additional pain they are to return for repeat evaluation. The patient stated understanding of this, has decision making capacity and is discharged in stable condition. The patient was instructed to return to the emergency department for re-evaluation in 12-24 hours and sooner if they feel worse in any way. GI followup/referrals given for elevated LFTs, f/u hepatitis panel and his AP/ diarrheal illness. 05/04/19 13:34 05/04/19 13:36
[2019-05-04] MEDS ORDERED: METOCLOPRAMIDE HCL INJECTION 10 MG/2 ML VIAL ONE (10:58)
[2019-05-04 11:28] LABS: BASO % 1.2 % (0-2.0); EOS % 0.3 % (0-4.5); HEMATOCRIT 51.7 % (35.4-49); HEMOGLOBIN 17.5 GM/dl (11.7-16.9); LYMPH % 4.5 % (8-40); MCH 30.4 pg (25.7-33.7); MEAN CELL VOLUME 89.5 fl (80-96); MEAN PLT VOLUME 9.1 fl (7.5-11.1); MONO % 5.8 % (3.8-10.2); NEUT % 88.2 % (42.8-82.8); PLATELET COUNT 285 K/MM3 (134-434); RBC 5.77 M/mm3 (4.00-5.60); RDW 13.4 % (11.9-15.9); WHITE BLOOD COUNT 14.7 K/mm3 (4.0-10.8)
[2019-05-04 11:36] LABS: ALBUMIN 4.9 g/dl (3.4-5.0); BILIRUBIN,TOTAL 1.6 mg/dl (0.2-1); CALCIUM 9.7 mg/dl (8.5-10); CREATININE 0.9 mg/dl (0.55-1.3); POTASSIUM 4.1 mmol/L (3.5-5.1); TOT PROT 8.7 g/dl (6.4-8.2)
[2019-05-04 11:44] LABS: ACTIVATED PTT 28.2 SECONDS (25.2-36.5)
[2019-05-04 11:49] LABS: INR 1.07 (0.82-1.09)
[2019-05-04] MEDS ORDERED: morphine CARPU-JECT 4 MG/1 ML DISP.SYRIN IVPUSH ONE (12:27)
[2019-05-04] MEDS ORDERED: morphine SULFATE 4 MG/ML VIAL ONE (12:39)
[2019-05-04] MEDS ORDERED: CIPROFLOXACIN 500 MG TABLET (RESTRICTED TO ID) PO ONE (13:34)
[2019-05-04] MEDS ORDERED: CIPROFLOXACIN 250 MG TABLET (RESTRICTED TO ID) PO ONE (13:39)
== END 2019-05-04 13:55 | disposition home or self-care (01) ==
LOC: FER 10:30
PROC: 3E033GC Introduction of Other Therapeutic Substance into Peripheral Vein, Percutaneous Approach (ICD-10-PCS; principal; 2019-05-04)
PROC: 3E033NZ Introduction of Analgesics, Hypnotics, Sedatives into Peripheral Vein, Percutaneous Approach (ICD-10-PCS; 2019-05-04)
DX: R10.84 Generalized abdominal pain (principal); A08.8 Other specified intestinal infections; Z88.8 Allergy status to other drugs, medicaments and biological substances
CPT/HCPCS: 36415; 71046-TC-FY; 74177-TC; 80053; 80074; 81003; 83690; 85025; 85610; 85730; 87086; 99283-25; J7030; Q9967

== ENCOUNTER 2020-03-24 10:19 | Emergency (ER) | payer BC ==
[2020-03-24 10:42] VITALS: TEMP 98.8; BMI 27.1
[2020-03-24 11:35] LABS: BASO % 0.5 % (0-2.0); EOS % 1.4 % (0-4.5); HEMATOCRIT 47.8 % (35.4-49); HEMOGLOBIN 16.1 GM/dL (11.7-16.9); LYMPH % 28.6 % (8-40); MCH 30.3 pg (25.7-33.7); MCHC 33.8 g/dl (32.0-35.9); MEAN CELL VOLUME 89.7 fl (80-96); MEAN PLT VOLUME 9.5 fl (7.5-11.1); MONO % 10.6 % (3.8-10.2); NEUT % 58.9 % (42.8-82.8); PLATELET COUNT 242 K/MM3 (134-434); RBC 5.33 M/mm3 (4.00-5.60); RDW 14.1 % (11.9-15.9); WHITE BLOOD COUNT 8.9 K/mm3 (4.0-10.0)
[2020-03-24 11:51] LABS: POTASSIUM 4.3 mmol/L (3.5-5.1)
[2020-03-24 11:52] LABS: CALCIUM 9.6 mg/dL (8.5-10.1)
[2020-03-24 11:53] LABS: ALBUMIN 4.8 g/dl (3.4-5.0); BLOOD UREA NITROGEN 9.8 mg/dL (7-18); MAGNESIUM 2.3 mg/dL (1.8-2.4)
[2020-03-24 11:56] LABS: CREATININE 0.9 mg/dL (0.55-1.3)
[2020-03-24 11:58] LABS: BILIRUBIN,TOTAL 1.2 mg/dL (0.2-1); TOT PROT 8.6 g/dl (6.4-8.2)
[2020-03-24 13:20] VITALS: BP 139/88; PULSE 72
== END 2020-03-24 15:32 | disposition home or self-care (01) ==
LOC: JER 10:19
DX: R04.2 Hemoptysis (principal); K92.1 Melena
CPT/HCPCS: 36415; 71275-TC; 74177-TC; 80053; 82272; 83690; 83735; 85025; 85730; 86850; 86900; 86901; 93005; 93010; 99285-25; Q9967

== ENCOUNTER 2020-05-20 19:55 | Emergency (ER) | payer BC ==
[2020-05-20 20:02] VITALS: BP 138/79; TEMP 97; BMI 27.3
[2020-05-20] MEDS ORDERED: MAG HYDROX/AL HYDROX/SIMETH 30 ML UNIT-DOSE CUP PO ONE (20:48)
[2020-05-20] MEDS ORDERED: FAMOTIDINE 20 MG/50 ML IVPB 20 MG/50 ML MG IVPB ONE ×2 (20:48→20:56)
[2020-05-20] MEDS ORDERED: SODIUM CHLORIDE 0.9% 500 ML INFUS.BAG IV ONE (20:50)
[2020-05-20] MEDS ORDERED: MAG HYDROX/AL HYDROX/SIMETH 30 ML UNIT-DOSE CUP ONE (20:56)
[2020-05-20 22:01] LABS: BASO % 0.5 % (0-2.0); EOS % 0.9 % (0-4.5); HEMATOCRIT 44.9 % (35.4-49); HEMOGLOBIN 15.5 GM/dL (11.7-16.9); LYMPH % 31.9 % (8-40); MCH 31.1 pg (25.7-33.7); MCHC 34.6 g/dl (32.0-35.9); MEAN CELL VOLUME 89.8 fl (80-96); MEAN PLT VOLUME 9.6 fl (7.5-11.1); MONO % 12.2 % (3.8-10.2); NEUT % 54.5 % (42.8-82.8); PLATELET COUNT 249 K/MM3 (134-434); RDW 14.3 % (11.9-15.9); WHITE BLOOD COUNT 10.2 K/mm3 (4.0-10.0)
[2020-05-20 22:24] LABS: POTASSIUM 4.3 mmol/L (3.5-5.1)
[2020-05-20 22:25] LABS: CALCIUM 9.4 mg/dL (8.5-10.1)
[2020-05-20 22:26] LABS: ALBUMIN 4.5 g/dl (3.4-5.0); BLOOD UREA NITROGEN 12.3 mg/dL (7-18)
[2020-05-20 22:29] LABS: CREATININE 0.9 mg/dL (0.55-1.3)
[2020-05-20 22:30] LABS: BILIRUBIN,TOTAL 1.8 mg/dL (0.2-1); TOT PROT 8.2 g/dl (6.4-8.2)
[2020-05-20 22:38] VITALS: PULSE 84
== END 2020-05-20 23:18 | disposition home or self-care (01) ==
LOC: JER 19:55
PROC: 3E033GC Introduction of Other Therapeutic Substance into Peripheral Vein, Percutaneous Approach (ICD-10-PCS; principal; 2020-05-20)
DX: R74.01 Elevation of levels of liver transaminase levels (principal); R10.9 Unspecified abdominal pain
CPT/HCPCS: 36415; 76700-TC; 80053; 83690; 85025; 93005; 93010; 99285-25

== ENCOUNTER 2021-04-26 07:02 | Emergency (ER) | payer BC ==
[2021-04-26 08:02] VITALS: TEMP 98.6; BMI 27.3
[2021-04-26] MEDS ORDERED: SODIUM CHLORIDE 1,000 ML IV STA (10:42)
[2021-04-26 11:15] LABS: BASO % 0.5 % (0-2.0); HEMATOCRIT 47.4 % (35.4-49); HEMOGLOBIN 15.9 GM/dL (11.7-16.9); LYMPH % 35.5 % (8-40); MCH 29.8 pg (25.7-33.7); MCHC 33.6 g/dl (32.0-35.9); MEAN CELL VOLUME 88.6 fl (80-96); MEAN PLT VOLUME 8.4 fl (7.5-11.1); PLATELET COUNT 303 10^3/uL (134-434); RBC 5.34 M/mm3 (4.00-5.60); RDW 13.7 % (11.9-15.9); WHITE BLOOD COUNT 9.2 K/mm3 (4.0-10.0)
[2021-04-26 11:27] LABS: INR 0.99 (0.83-1.09); PROTHROMBIN TIME (PATIENT) 11.6 SEC (9.7-13.0)
[2021-04-26 11:31] LABS: ACTIVATED PTT 27.6 SECONDS (25.2-36.5)
[2021-04-26 11:43] LABS: CHLORIDE 104 mmol/L (98-107); SODIUM 136 mmol/L (136-145)
[2021-04-26 11:45] LABS: CALCIUM 9.6 mg/dL (8.5-10.1)
[2021-04-26 11:46] LABS: ALBUMIN 4.3 g/dl (3.4-5.0); ANION GAP 8 MMOL/L (8-16); BLOOD UREA NITROGEN 14.3 mg/dL (7-18); CO2 24 mmol/L (21-32); GLUCOSE,RANDOM 89 mg/dL (74-106); LIPASE 101 U/L (73-393); MAGNESIUM 2.7 mg/dL (1.8-2.4)
[2021-04-26 11:49] LABS: CREATININE 0.9 mg/dL (0.55-1.3); SGOT/AST 23 U/L (15-37); SGPT/ALT 57 U/L (13-61)
[2021-04-26 11:50] LABS: BILIRUBIN,TOTAL 1.4 mg/dL (0.2-1); TOT PROT 8.6 g/dl (6.4-8.2)
[2021-04-26 11:52] LABS: ALK PHOS 69 U/L (45-117)
[2021-04-26 15:00] VITALS: BP 145/88; PULSE 75
== END 2021-04-26 15:00 | disposition left against medical advice (07) ==
LOC: JER 07:02
PROC: 3E0337Z Introduction of Electrolytic and Water Balance Substance into Peripheral Vein, Percutaneous Approach (ICD-10-PCS; principal; 2021-04-26)
DX: K92.0 Hematemesis (principal); R04.2 Hemoptysis; K62.5 Hemorrhage of anus and rectum
CPT/HCPCS: 36415; 71046-TC-FY; 80053; 82272; 82550; 83690; 83735; 84484; 85025; 85610; 85730; 86850; 86900; 86901; 99284-25

== ENCOUNTER → 2022-04-06 | Emergency (ER) | payer BC ==
[2022-04-06 23:37] VITALS: BP 153/113; PULSE 81; RESP 16; TEMP 98.3; BMI 27.2
== END ==
LOC: JER 23:23
DX: S59.912A Unspecified injury of left forearm, initial encounter (principal); Y99.9 Unspecified external cause status
CPT/HCPCS: 99281-25

== ENCOUNTER 2022-05-22 11:05 | Emergency (ER) | payer BC ==
[2022-05-22 11:17] VITALS: BP 164/85; RESP 24; TEMP 98.9; BMI 27.9
[2022-05-22] MEDS ORDERED: diazePAM CARPU-JECT 10 MG/2 ML DISP.SYRIN IVPUSH ONE (12:03)
[2022-05-22] MEDS ORDERED: chlordiazePOXIDE HCL 25 MG CAPSULE PO ONE (12:10)
[2022-05-22] MEDS ORDERED: diazePAM CARPU-JECT 10 MG/2 ML DISP.SYRIN ONE (12:17)
[2022-05-22] MEDS ORDERED: chlordiazePOXIDE HCL 25 MG CAPSULE ONE (12:18)
[2022-05-22] MEDS ORDERED: FOLIC ACID 1 MG TABLET (FP) PO ONE (12:20)
[2022-05-22] MEDS ORDERED: THIAMINE HCL 200 MG/2 ML VIAL IVPB SCH (12:30)
[2022-05-22] MEDS ORDERED: FOLIC ACID 1 MG TABLET (FP) ONE (12:47)
[2022-05-22] MEDS ORDERED: THIAMINE HCL 200 MG/2 ML VIAL ONE (12:47)
[2022-05-22 13:44] LABS: BASO % 0.5 % (0-2.0); EOS % 0.7 % (0-4.5); HEMATOCRIT 42.9 % (35.4-49); HEMOGLOBIN 14.6 GM/dL (11.7-16.9); LYMPH % 20.5 % (8-40); MCH 29.9 pg (25.7-33.7); MCHC 34.1 g/dl (32.0-35.9); MEAN CELL VOLUME 87.8 fl (80-96); MEAN PLT VOLUME 9.2 fl (7.5-11.1); MONO % 10.6 % (3.8-10.2); NEUT % 67.7 % (42.8-82.8); PLATELET COUNT 281 10^3/uL (134-434); RBC 4.89 M/mm3 (4.00-5.60); RDW 14.1 % (11.9-15.9); WHITE BLOOD COUNT 8.9 K/mm3 (4.0-10.0)
[2022-05-22 13:50] LABS: ALBUMIN 4.3 g/dl (3.4-5.0); BLOOD UREA NITROGEN 9.8 mg/dL (7-18)
[2022-05-22 13:53] LABS: CREATININE 0.8 mg/dL (0.55-1.3)
[2022-05-22 13:54] LABS: BILIRUBIN,TOTAL 1.3 mg/dL (0.2-1); TOT PROT 8.5 g/dl (6.4-8.2)
[2022-05-22 16:07] VITALS: PULSE 88
== END 2022-05-22 16:18 | disposition home or self-care (01) ==
LOC: JER 11:05
PROC: 3E033NZ Introduction of Analgesics, Hypnotics, Sedatives into Peripheral Vein, Percutaneous Approach (ICD-10-PCS; principal; 2022-05-22)
PROC: 3E033GC Introduction of Other Therapeutic Substance into Peripheral Vein, Percutaneous Approach (ICD-10-PCS; 2022-05-22)
DX: F10.930 Alcohol use, unspecified with withdrawal, uncomplicated (principal)
CPT/HCPCS: 36415; 71046-TC-FY; 76705-TC; 80053; 80307; 83690; 85025; 93005; 93010; 99285-25

== ENCOUNTER 2022-09-11 07:43 | Emergency (ER) | payer BC ==
[2022-09-11 07:50] VITALS: RESP 18; TEMP 98.6; BMI 27.5
[2022-09-11 08:33] VITALS: BP 123/74; PULSE 58
== END 2022-09-11 10:27 | disposition home or self-care (01) ==
LOC: JER 07:43
DX: R42 Dizziness and giddiness (principal); R11.0 Nausea; R06.02 Shortness of breath; H53.8 Other visual disturbances
CPT/HCPCS: 82962; 93005; 93010; 99283-25